=== PATIENT | female | born 1975 | race Caucasian/White ===

== ENCOUNTER 2022-11-16 07:31 | Emergency (ER) | payer OTHER ==
[~2022-11-16] VITALS: Ht 175.3 cm; Wt 79.4 kg
--- NOTE | 2022-11-16 07:47 | NUR ---
Dr. Busby at bedside for MSE.
[2022-11-16] MEDS ORDERED: CYCLOBENZAPRINE HCL 10 MG TABLET PO ONE (08:00)
[2022-11-16] MEDS ORDERED: CYCLOBENZAPRINE HCL 10 MG TABLET ONE (08:01)
[2022-11-16] MEDS ORDERED: HYDROMORPHONE 1 MG/1 ML DISP.SYRIN ONE ×2 (08:01→10:47)
[2022-11-16] MEDS: HYDROMORPHONE 1 MG/1 ML DISP.SYRIN IV ONE ×2 (08:08→08:24)
--- NOTE | 2022-11-16 08:18 | NUR ---
Pt left room for CT scan.
[2022-11-16 08:24] LABS: HEMATOCRIT 40.3 % (31.2-41.9); MEAN CORPUSCULAR HEMOGLOBIN 31.4 uug (24.7-32.8); MEAN CORPUSCULAR VOLUME 93.1 fL (75.5-95.3); PLATELET COUNT (AUTO) 310 K/uL (179-408)
[2022-11-16 08:28] LABS: *BILIRUBIN,URIN NEGATIVE (NEGATIVE); *CLARITY,URINE CLEAR (CLEAR); *COLOR,URINE YELLOW (YELLOW); *KETONES,URINE NEGATIVE (NEGATIVE); *UROBILINOGEN,URINE 0.2 E.U./dl (NORMAL); LEUKOCYTE ESTERASE ,URINE NEGATIVE (NEGATIVE); NITRITE, URINE NEGATIVE (NEGATIVE); PH,URINE 6.5 (5.0-8.0); UGLUCOSE NEGATIVE (NEGATIVE)
[2022-11-16] MEDS ORDERED: HYDROMORPHONE 1 MG/1 ML DISP.SYRIN IM ONE ×2 (08:30→10:45)
[2022-11-16 08:34] LABS: CREATININE 0.8 mg/dL (0.6-1.3)
[2022-11-16 08:36] LABS: *BLOOD, URINE TRACE (NEGATIVE)
--- NOTE | 2022-11-16 08:40 | NUR ---
PT back from Ct scan, resting in bed, NAD noted.
[2022-11-16 08:43] LABS: BILIRUBIN,TOTAL 0.3 mg/dL (0.2-1.0); TOTAL PROTEIN, SERUM 6.8 g/dL (6.4-8.2)
[2022-11-16] MEDS ORDERED: KETOROLAC TROMETHAMINE 30 MG INJ IM ONE (10:45)
[2022-11-16] MEDS ORDERED: ACETAMINOPHEN 325 MG TABLET PO ONE (10:45)
[2022-11-16] MEDS ORDERED: ACETAMINOPHEN 325 MG TABLET ONE (10:47)
[2022-11-16] MEDS ORDERED: KETOROLAC TROMETHAMINE 30 MG INJ ONE (10:47)
[2022-11-16 11:37] LABS: BACTERIA,URINE FEW /HPF (NONE SEEN); SQUAMOUS EPITHELIAL CELL,UR FEW /HPF (NONE SEEN); WBC,URINE 0-3 /HPF (0-3)
[2022-11-16] MEDS ORDERED: HYDR-4209 PO ×3 (12:18→13:18)
[2022-11-16] MEDS ORDERED: CYCL10TA9 PO (12:39)
[2022-11-16] MEDS ORDERED: NAPR-1009 PO (12:40)
--- NOTE | 2022-11-16 12:45 | NUR ---
Patient discharged to home in stable condition. Written and verbal after care instructions given. Patient verbalizes understanding of instructions. Pt walked out of ER with steady gait. Stressed follow up or return to ER for worsening s/s.
[2022-11-16 12:46] VITALS: BP 135/76
[2022-11-17 08:06] LABS: COMPLEMENT, C3 SERUM 124 mg/dL (82-167); COMPLEMENT, C4 SERUM 20 mg/dL (12-38)
[2022-11-17 12:07] LABS: ANTI-DNA(DS) AB, QN 3 IU/mL (0-9)
== END 2022-11-16 12:48 | disposition home or self-care (01) ==
LOC: ER 07:31
DX: M54.9 Dorsalgia, unspecified (principal); M32.9 Systemic lupus erythematosus, unspecified; M47.897 Other spondylosis, lumbosacral region; N13.30 Unspecified hydronephrosis; Z88.1 Allergy status to other antibiotic agents; Z88.2 Allergy status to sulfonamides
CPT/HCPCS: 99285; 72131; 80053; 81001; 85025; 36415; 74176; 96372 ×2; 86225; 86160 ×2; J1885; J1170 ×2